=== PATIENT | female | born 1965 | race Caucasian/White ===

== ENCOUNTER → 2022-01-15 | Outpatient (CLI) | payer OTHER ==
[~2022-01-15] MED LIST: ASPIRIN EC81 MG PO; ATENOLOL25 MG PO; BASAGLAR K100 UNIT/1 SC; COZAAR100 MG PO; GLUCOPHAGE XR500 MG PO; GLUCOTROL 10 MG10 MG PO; HUMALOG SQ; HUMALOG100 UNIT/1 SQ; HYDROCHLOROTH12.5 M1 PO; IMDUR ER TAB 3030 MG PO; KEFLEX CAP 500500 MG PO; LISINOPRIL10 MG PO; LORTAB 5-325 M1 EACH PO; NEURONTIN400 MG PO; NITROSTAT0.4 MG SL; PROTONIX40 MG PO; TYLENOL 500 MG500 MG PO; UNKNOWN INHALER INH; VITAMIN D250000 UNIT PO; ZOCOR20 MG PO; ZYRTEC10 MG PO
== END ==
LOC: EMI 15:22
DX: M51.16 Intervertebral disc disorders with radiculopathy, lumbar region (principal)
CPT/HCPCS: 72148

== ENCOUNTER → 2022-03-11 | Outpatient (CLI) | payer OTHER | LOC: EMI 09:03 | DX: M23.92 Unspecified internal derangement of left knee (principal); M25.562 Pain in left knee | CPT/HCPCS: 73721 ==